=== PATIENT | male | born 1970 | race Caucasian/White ===

== ENCOUNTER 2021-06-01 10:29 | Outpatient (REF) | payer MEDICAID, SELFPAY ==
--- NOTE | ~2021-06-01 | XR_ITS ---
EXAMINATION: XR KNEES, STANDING AP XR KNEE, RIGHT CLINICAL INFORMATION: Knee pain COMPARISON: None TECHNIQUE: Standing AP view of both knees is performed. Lateral and axial patella views of the right knee are also included. FINDINGS: Right: There is borderline narrowing medial knee joint compartment. No erosive change or chondrocalcinosis. There is marginal osteophytes from the medial femoral condyle. Moderate suprapatellar effusion is present. There is corticated ossicle at the proximal anterior tibial tuberosity measuring approximately 1.1 cm and thickness by 2.1 cm in length. The deep infrapatellar recess is preserved. There is no fracture or dislocation or destructive process. Axial view patella shows no significant joint narrowing and no lateralization patella. The may be a mild lateral patellar tilt. Left: There is borderline narrowing medial knee joint compartment without erosive change or chondrocalcinosis. No fracture or dislocation. No destructive process. XR/XR knee RT 2V IMPRESSION: Right: -Mild narrowing medial compartment. -Moderate suprapatellar effusion. -Corticated ossicle proximal anterior tibial tuberosity. Left: -Mild narrowing medial compartment.
--- NOTE | ~2021-06-01 | XR_ITS ---
EXAMINATION: XR KNEES, STANDING AP XR KNEE, RIGHT CLINICAL INFORMATION: Knee pain COMPARISON: None TECHNIQUE: Standing AP view of both knees is performed. Lateral and axial patella views of the right knee are also included. FINDINGS: Right: There is borderline narrowing medial knee joint compartment. No erosive change or chondrocalcinosis. There is marginal osteophytes from the medial femoral condyle. Moderate suprapatellar effusion is present. There is corticated ossicle at the proximal anterior tibial tuberosity measuring approximately 1.1 cm and thickness by 2.1 cm in length. The deep infrapatellar recess is preserved. There is no fracture or dislocation or destructive process. Axial view patella shows no significant joint narrowing and no lateralization patella. The may be a mild lateral patellar tilt. Left: There is borderline narrowing medial knee joint compartment without erosive change or chondrocalcinosis. No fracture or dislocation. No destructive process. XR/XR knee standing BI IMPRESSION: Right: -Mild narrowing medial compartment. -Moderate suprapatellar effusion. -Corticated ossicle proximal anterior tibial tuberosity. Left: -Mild narrowing medial compartment.
== END 2021-06-01 10:30 | disposition home or self-care (01) ==
LOC: HO.HOSX 10:29
PROVIDERS: Visit Provider Physician Assistant
DX: M25.561 Pain in right knee (principal); M25.461 Effusion, right knee; Z87.39 Personal history of other diseases of the musculoskeletal system and connective tissue
CPT/HCPCS: 20610; 73560; 73565; 87071; 87073; 87205; 89060; 99212; J1040

== ENCOUNTER 2022-03-21 09:29 | Outpatient (REF) | payer OTHER, SELFPAY ==
[2022-03-21 10:01] LABS: MANUAL DIFF FLAG NO
[2022-03-21 10:18] LABS: Basophils Percent Auto 0.1 % (0-2); Hematocrit 46.1 % (42.0-52.0); Hemoglobin 15.5 g/dl (14.0-18.0); Imm Gran Abs Auto 0.04 X10*3/uL (0.00-0.03); Imm Gran Pct Auto 0.5 % (0.0-0.4); Lymphocytes Percent Auto 22.9 % (20-40); Mean Corpuscular HGB Conc 33.6 g/dl (31.0-36.0); Mean Corpuscular Hemoglobin 29.5 pg (27.0-33.0); Mean Corpuscular Volume 87.6 fL (80.0-98.0); Mean Platelet Volume 9.9 fL (9.4-12.4); Monocytes Absolute Auto 0.6 X10*3/uL (0.1-1.2); Monocytes Percent Auto 7.4 % (2-11); Neutrophils Absolute Auto 5.9 x10*3/uL (2.0-8.3); Neutrophils Percent Auto 69.1 % (45-73); Platelet Count 241 X10*3/uL (160-400); Red Blood Count 5.26 X10*6/uL (4.60-5.80); White Blood Count 8.5 X10*3/uL (4.8-10.8)
[2022-03-21 10:37] LABS: Estimated Average Glucose 126 mg/dL
[2022-03-21 11:04] LABS: Erythrocyte Sedimentation Rate 6 MM/HR (0-15)
[2022-03-21 11:05] LABS: Alanine Aminotransferase 14 U/L (0-40); Albumin Level 4.3 g/dL (3.5-5.0); Alkaline Phosphatase 63 U/L (39-117); Anion Gap 19 (12-20); Aspartate Amino Transferase 13 U/L (5-37); Bilirubin Total 0.6 mg/dL (0.0-1.0); Blood Urea Nitrogen 14 mg/dL (9-16); C Reactive Protein 1.02 mg/dL (< or = 0.50); Calcium 9.3 mg/dL (8.4-10.2); Carbon Dioxide 23 mmol/L (22-29); Chloride 105 mmol/L (96-108); Cholesterol 214 mg/dL; Estimated Glomerular Filt Rate > 60; Glucose Random 194 mg/dL (60-115); HDL Cholesterol 43 mg/dL; LDL Cholesterol Calculated 139 mg/dl; Potassium 4.7 mmol/L (3.3-5.1); Sodium 142 mmol/L (135-145); Total Protein 6.9 g/dL (6.5-8.0); Triglycerides 163 mg/dL; Uric Acid 7.5 mg/dL (3.4-7.0)
== END 2022-03-21 09:30 | disposition home or self-care (01) ==
LOC: HO.LAB 09:29
PROVIDERS: Visit Provider Student in an Organized Health Care Education/Training Program
DX: M10.9 Gout, unspecified (principal)
CPT/HCPCS: 36415; 80053; 80061; 83036; 84550; 85025; 85652; 86140

== ENCOUNTER 2022-05-03 09:55 | Day surgery (SDC) | payer OTHER, SELFPAY ==
[2022-05-03 10:12] VITALS: BMI 32.5
[2022-05-03 10:39] VITALS: BP 148/94; PULSE 71; RESP 18; TEMP 36.7; O2SAT 97
--- NOTE | 2022-05-03 11:47 | MHC.SHP ---
Pre-Procedural Eval Section A Date of Service: 05/03/22 The patient is an INPATIENT: No Changes since office visit: No Cold of Flu in the past 2 weeks, No New Medical Problems, No Changes in Medication and No Patient answered all questions The History & Physical has been completed within 30 days and I have reviewed it.: Yes Section B Chief Complaint: Trigger finger, left middle finger Allergies: Allergies Allergy/AdvReac Type Severity Reaction Status Date / Time No Known Allergies Allergy Verified 05/03/22 10:44 Plan I have reviewed the history and physical and performed a pertinent physical examination on my patient. No changes have occurred unless specified.
--- NOTE | 2022-05-03 11:48 | P.OP_ITS ---
Operative Note Operative Note Date of Service: 05/03/22 Narrative: Operative Note Preop diagnosis: 1. Left middle finger Trigger finger Postop diagnosis: 1. Left middle finger Trigger finger Procedure: 1. Left middle finger A1 becki release Surgeon: Berta Leonardo MD Anesthesia: local block using 1% lidocaine with epinephrine Findings: No locking or catching after A1 becki release EBL: Less than 5 mL Tourniquet time: None Specimens: None Complications: None Disposition: Brought to recovery room in stable condition Plan: Follow-up for 10-14 days for wound check and suture removal Indications: The patient is 52 years old, with a left middle finger trigger finger that has been unresponsive to nonoperative management. The risks and benefits of operative treatment including but not limited to risk of damage to blood vessels, nerves, tendons, infection, persistent pain, persistent symptoms, recurrence or possible need for additional surgery were discussed with the patient and the patient wishes to proceed with surgery. Procedure: Once consent was obtained a local block was performed in the preop area using a combination of 1% lidocaine with epinephrine. The patient was then brought back to the operating suite and placed on the operative table in supine position. A tourniquet was applied to the proximal aspect of the left upper extremity and the limb was prepped and draped in a standard surgical fashion. Once assured that we had a good block, a 1.5 cm oblique incision was made centered over the A1 becki of the left middle finger . The incision was made through the skin to the subcutaneous tissues using a #15 blade. Careful dissection was made down to the level of the A1 becki using tenotomy scissors, with care being taken to protect the nearby neurovascular structures. A longitudinal incision was made in the A1 becki 1st using a #15 blade, then using tenotomy scissors under direct visualization. The A1 becki was noted to be thickened. Following our A1 becki release, we no longer saw any locking or catching of the digit with flexion and extension. Once satisfied with our A1 becki release the wound was copiously irrigated with normal saline and hemostasis was obtained with a brief period of local pressure. The skin edges were reapproximated with some 5.0 nylon suture material and a sterile dressing was applied. The patient appears to have tolerated the procedure well and with no compli cations. All digits were well vascularized at the conclusion of the case.
[2022-05-03 12:17] VITALS: BP 134/79; PULSE 63; RESP 17; TEMP 36.5; O2SAT 97
== END 2022-05-03 12:21 | disposition home or self-care (01) ==
PROVIDERS: Visit Provider Orthopaedic Surgery
PROC: (CPT 26055; principal; 2022-05-03 11:40)
DX: M65.332 Trigger finger, left middle finger (principal); E78.5 Hyperlipidemia, unspecified; Z79.899 Other long term (current) drug therapy
CPT/HCPCS: 26055; J0171

== ENCOUNTER 2022-06-01 07:14 | Outpatient (REF) | payer OTHER, SELFPAY ==
[2022-06-01 07:21] LABS: MANUAL DIFF FLAG NO
[2022-06-01 08:03] LABS: Basophils Percent Auto 0.8 % (0-2); Eosinophils Percent Auto 3.4 % (0-4); Hemoglobin 15.5 g/dl (14.0-18.0); Imm Gran Abs Auto 0.02 X10*3/uL (0.00-0.03); Imm Gran Pct Auto 0.3 % (0.0-0.4); Lymphocytes Absolute Auto 2.1 X10*3/uL (1.2-4.9); Lymphocytes Percent Auto 34.1 % (20-40); Mean Corpuscular HGB Conc 34.4 g/dl (31.0-36.0); Mean Corpuscular Hemoglobin 30.4 pg (27.0-33.0); Mean Corpuscular Volume 88.2 fL (80.0-98.0); Mean Platelet Volume 11.1 fL (9.4-12.4); Monocytes Absolute Auto 0.5 X10*3/uL (0.1-1.2); Monocytes Percent Auto 8.5 % (2-11); Neutrophils Absolute Auto 3.3 x10*3/uL (2.0-8.3); Neutrophils Percent Auto 52.9 % (45-73); Platelet Count 180 X10*3/uL (160-400); Red Cell Distribution Width 12.4 % (11.0-16.0); White Blood Count 6.2 X10*3/uL (4.8-10.8)
[2022-06-01 08:04] LABS: Basophils Absolute Auto 0.1 X10*3/uL (0.0-0.2); Eosinophils Absolute Auto 0.2 X10*3/uL (0.0-0.4)
[2022-06-01 08:30] LABS: Alanine Aminotransferase 14 U/L (0-40); Albumin Level 4.4 g/dL (3.5-5.0); Alkaline Phosphatase 56 U/L (39-117); Anion Gap 12 (12-20); Aspartate Amino Transferase 16 U/L (5-37); Bilirubin Total 0.6 mg/dL (0.0-1.0); Blood Urea Nitrogen 15 mg/dL (9-16); C Reactive Protein 0.28 mg/dL (< or = 0.50); Calcium 9.4 mg/dL (8.4-10.2); Carbon Dioxide 24 mmol/L (22-29); Chloride 107 mmol/L (96-108); Cholesterol 203 mg/dL; Estimated Glomerular Filt Rate > 60; Glucose Random 107 mg/dL (60-115); HDL Cholesterol 38 mg/dL; LDL Cholesterol Calculated 147 mg/dl; Potassium 4.3 mmol/L (3.3-5.1); Sodium 139 mmol/L (135-145); Total Protein 6.8 g/dL (6.5-8.0); Triglycerides 92 mg/dL; Uric Acid 6.3 mg/dL (3.4-7.0)
[2022-06-01 08:47] LABS: Erythrocyte Sedimentation Rate 3 MM/HR (0-15)
[2022-06-01 08:49] LABS: Estimated Average Glucose 123 mg/dL; Hemoglobin A1c % 5.9 %
== END 2022-06-01 07:15 | disposition home or self-care (01) ==
LOC: HO.LAB 07:14
PROVIDERS: PCP Family Medicine; Visit Provider Student in an Organized Health Care Education/Training Program
DX: M10.9 Gout, unspecified (principal)
CPT/HCPCS: 36415; 80053; 80061; 83036; 84550; 85025; 85652; 86140

== ENCOUNTER 2022-07-04 10:41 | Outpatient (REF) | payer OTHER, SELFPAY ==
--- NOTE | ~2022-07-04 | XR_ITS ---
EXAMINATION: XR WRIST, LEFT XR HAND, LEFT CLINICAL INFORMATION: Left wrist and hand pain. COMPARISON: None. TECHNIQUE: PA, lateral, oblique, and scaphoid views of the left wrist and PA, lateral, and oblique views of the left hand FINDINGS: LEFT WRIST: There is abnormal alignment of the proximal carpal row with anterior tilt of the lunate, a capitolunate angle of 50 degrees, and a scapholunate angle of 35 degrees. Subtle offset is evident at the lunotriquetral joint. Although not diagnostic, these findings raise suspicion for a volar intercalated segment instability deformity (VISI). There is narrowing of the hamatolunate impingement articulation with cortical irregularity at the articulation, likely degenerative. Mild radiocarpal osteoarthritis with nonuniform joint space narrowing and small marginal osteophytes. CMC and radiocarpal joints are otherwise normal. Mild soft tissue swelling at the wrist. No fractures. LEFT HAND: Tiny marginal osteophytes are evident within multiple MCP and DIP joints. No fracture or malalignment. Bone mineralization is normal. No erosions. Soft tissues are unremarkable. XR/XR hand LT min 3V IMPRESSION: 1. 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 Consider correlation with MRI of the wrist for further assessment of the lunotriquetral ligament if the patient's findings correlate with possible carpal instability. 2. 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 No acute osseous findings. No evidence of an inflammatory arthropathy. No erosions.
--- NOTE | ~2022-07-04 | XR_ITS ---
EXAMINATION: XR WRIST, LEFT XR HAND, LEFT CLINICAL INFORMATION: Left wrist and hand pain. COMPARISON: None. TECHNIQUE: PA, lateral, oblique, and scaphoid views of the left wrist and PA, lateral, and oblique views of the left hand FINDINGS: LEFT WRIST: There is abnormal alignment of the proximal carpal row with anterior tilt of the lunate, a capitolunate angle of 50 degrees, and a scapholunate angle of 35 degrees. Subtle offset is evident at the lunotriquetral joint. Although not diagnostic, these findings raise suspicion for a volar intercalated segment instability deformity (VISI). There is narrowing of the hamatolunate impingement articulation with cortical irregularity at the articulation, likely degenerative. Mild radiocarpal osteoarthritis with nonuniform joint space narrowing and small marginal osteophytes. CMC and radiocarpal joints are otherwise normal. Mild soft tissue swelling at the wrist. No fractures. LEFT HAND: Tiny marginal osteophytes are evident within multiple MCP and DIP joints. No fracture or malalignment. Bone mineralization is normal. No erosions. Soft tissues are unremarkable. XR/XR wrist LT w scaphoid IMPRESSION: 1. 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 Consider correlation with MRI of the wrist for further assessment of the lunotriquetral ligament if the patient's findings correlate with possible carpal instability. 2. 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 No acute osseous findings. No evidence of an inflammatory arthropathy. No erosions.
== END 2022-07-04 10:42 | disposition home or self-care (01) ==
LOC: HO.HOSX 10:41
PROVIDERS: PCP Internal Medicine Gastroenterology; Visit Provider Orthopaedic Surgery
DX: M25.532 Pain in left wrist (principal); M65.332 Trigger finger, left middle finger; M79.642 Pain in left hand
CPT/HCPCS: 20550; 73110; 73130; J1100

== ENCOUNTER → 2024-03-27 09:14 | Outpatient (BNVA) | payer OTHER, SELFPAY | PROVIDERS: PCP Internal Medicine Gastroenterology; Visit Provider Internal Medicine | DX: Z13.89 Encounter for screening for other disorder (principal) | CPT/HCPCS: 99202 ==

== ENCOUNTER 2024-08-19 13:57 | Outpatient (AMB) | payer OTHER, SELFPAY ==
[2024-08-19 13:59] VITALS: BP 132/88; PULSE 83; O2SAT 95; BMI 34.6
--- NOTE | 2024-08-19 13:59 | A.OFFPC_ITS ---
Vital Signs 08/19/24 13:59 Height 6 ft Weight 255 lb BMI 34.6 BP 132/88 Blood Pressure Location Lt brachial Position Sitting Pulse 83 Pulse Source Pulse Oximeter Pulse Oximetry (%) 95 Oxygen Delivery Method Room Air Intake Visit Reasons: NEW PATIENT Allergies No Known Allergies Allergy (Verified 08/19/24 14:00) Medication List - Last Reconciled 08/19/24 by Radames Tyler MD Tobacco use date assessed: 08/19/24 Dental Screening Dental Screen Date: 08/19/24 Did you have a dental visit in the last 12 months?: Yes Did you have a dental problem in the last 6 months where you did not have access to dental care?: No Was dental information given to patient?: Patient has dentist [facility] Medical History (Updated 08/19/24 @ 14:45 by Radames Tyler MD) Left wrist pain Left hand pain NSAID long-term use Hypertension Prediabetes Dyslipidemia Surgical History (Updated 08/19/24 @ 14:24 by Radames Tyler MD) S/P left knee surgery Left wrist injury Family History (Updated 08/19/24 @ 14:29 by Radames Tyler MD) Mother No problems noted. Father Myocardial infarct Lung cancer Brother No problems noted. Sister No problems noted. Sister No problems noted. Sister No problems noted. Daughter No problems noted. Daughter No problems noted. Daughter No problems noted. Social History (Updated 08/19/24 @ 14:31 by Radames Tyler MD) Household Members: Spouse and Family Housing: House Alcohol intake: current Comment: once drink Q 3 months Patient Tobacco Use Status: Never used Tobacco Tobacco use type: Cigarette Years Smoked: cigar once ayear, e-Cigarette/Vaping Use: Never Used Second Hand Smoke Exposure: No service: No Current occupational status: employed Current occupation: [employer] Cognitive needs: No Hearing needs: No Vision needs: No Questionnaire PHQ-9 Over the last 2 weeks, how often have you been bothered by any of the following problems? 1. Little interest or pleasure in doing things: not at all 2. Feeling down, depressed, or hopeless: not at all 3. Trouble falling or staying asleep, or sleeping too much: several days 4. Feeling tired or having little energy: not at all 5. Poor appetite or overeating: not at all 6. Feeling bad about yourself - or that you are a failure or have let yourself or your family down: not at all 7. Trouble concentrating on things, such as reading the newspaper or watching television: not at all 8. Moving or speaking so slowly that other people could have noticed. Or the opposite - being so fidgety or restless that you have been moving around a lot more than usual: not at all 9. Thoughts that you would be better off or of hurting yourself in some way: not at all Total score: 1 Depression Screening Interpretation: Positive Depression Screening Done: Yes 89867 - PHQ-9 Billing: Yes Source: Developed by Drs. Shawn Mason, Jo Pierre, Cj Walker and colleagues, with an educational amparo from [employer]. Thrive Questionnaire Date Thrive assessed: 08/19/24 I am a: Patient What is your living situation today?: I have a steady place to live Within the past 12 months, did the food you bought not last and you didn't have the money to get more?: Never true Within the past 12 months, did you worry whether your food would run out before you got money to buy more?: Never true Do you have trouble paying for medicines?: No Do you have trouble getting transportation to medical appointments?: No Do you have trouble paying your heating and electricity bill?: No Do you have trouble taking care of your child, family member or friend?: No Do you have trouble with day-to-day activities such as bathing, preparing meals, shopping, managing finances, etc.?: No Are you currently unemployed and looking for a job?: No Are you interested in more education?: No Please select the resources that you would like help with: None Currently or been in a relationship where the following occur: No concerns reported THRIVE Score: 0 AUDIT C Alcohol Use Questionnaire (AUDIT-C) 1. How often do you have a drink containing alcohol?: Monthly or less 2. How many drinks containing alcohol do you have on a typical day when you are drinking?: 1 or 2 3. How often do you have six or more drinks on one occasion?: Never Total Score: 1 LORETTA-7 AMB Questionnaire LORETTA-7 Date LORETTA - 7 assessed: 02/26/25 Feeling nervous, anxious, or on edge: 0 = Not at all Not being able to stop or control worryin = Not at all Worrying too much about different things: 0 = Not at all Trouble relaxin = Not at all Being so restless that it is hard to sit still: 0 = Not at all Becoming easily annoyed or irritable: 1 = Several days Feeling afraid as if something awful might happen: 0 = Not at all Total LORETTA-7 score (0-4 normal; 5-9 mild; 10-14 moderate; 15-21 severe): 1 Source: Developed by Drs. Shawn Mason, Jo Pierre, Cj Walker and colleagues, with an educational amparo from [employer]. Physical exam (Primary Care) Vital Signs: Last Vital Signs Pulse 83 08/19/24 13:59 BP 132/88 08/19/24 13:59 Pulse Ox 95 08/19/24 13:59 Oxygen Delivery Method Room Air 08/19/24 13:59 BMI result Body Mass Index 34.6 Tobacco/Smoking Status: Tobacco use Status Tobacco use date assessed 08/19/24 08/19/24 14:06 Patient Tobacco Use Status Never used Tobacco 08/19/24 14:31 Tobacco use type Cigarette 08/19/24 14:31 e-Cigarette/Vaping Use Never Used 08/19/24 14:31 PHQ-9: PHQ-9 Score PHQ-9: Total score 1 08/19/24 14:11 Depression Screening Interpretation: Positive Thrive Assessment: Date of Thrive Assessment Date Thrive assessed 08/19/24 08/19/24 14:06 Currently or been in a relationship where the following occur: No concerns reported Const General: alert; No acute distress Eyes Conjunctivae: conjunctivae normal Resp Auscultation: clear to auscultation bilaterally Cardio Rate: regular rate Rhythm: regular rhythm GI Inspection: Yes normal to inspection Extrem General: Yes normal to inspection and No edema Coding Level of Care Code New Pt Level 4 (51127) Diagnoses Glucose intolerance (impaired glucose tolerance) R73.02 Acute idiopathic gout of right foot M10.071 Chronicity: acute Gout etiology: idiopathic Gout site: foot Laterality: right Dyslipidemia E78.5 Obesity (BMI 30-39.9) E66.9 Colon cancer screening Z12.11 Colonoscopy refused Z53.20 Hypersomnia G47.10 Insomnia G47.00 Generalized anxiety disorder F41.1 Blood pressure elevated without history of HTN R03.0 Additional Codes PHQ-9 - 15873 - PHQ-9 Billing: Yes ([id number]) Assessment & Plan Assessment & Plan (1) Glucose intolerance (impaired glucose tolerance): Code(s): R73.02 - Impaired glucose tolerance (oral) Category: Medical Plan: Decrease the amount of carbohydrate intake, pasta, bread, rice and potatoes are all sugar and that is aside from all the sweet stuff, remember that fruits are good but they are Sweet also. (2) Gout: Code(s): M10.9 - Gout, unspecified Category: Medical Qualifiers: Chronicity: acute Gout etiology: idiopathic Gout site: foot Laterality: right Qualified Code(s): M10.071 - Idiopathic gout, right ankle and foot Plan: Low purine diet and keep well hydrated (3) Dyslipidemia: Code(s): E78.5 - Hyperlipidemia, unspecified Category: Medical Plan: Avoid fried foods, chicken skin, eggs, butter margarine, pastries and meat. Be it pork or beef they have a lot of cholesterol LDL goal of less than 130 and triglyceride of less than 150 (4) Obesity (BMI 30-39.9): Code(s): E66.9 - Obesity, unspecified Category: Medical Plan: Diet and exercise (5) Colon cancer screening: Code(s): Z12.11 - Encounter for screening for malignant neoplasm of colon Category: Medical (6) Colonoscopy refused: Code(s): Z53.20 - Procedure and treatment not carried out because of patient's decision for unspecified reasons Category: Medical (7) Hypersomnia: Code(s): G47.10 - Hypersomnia, unspecified Category: Medical (8) Insomnia: Code(s): G47.00 - Insomnia, unspecified Category: Medical (9) Generalized anxiety disorder: Code(s): F41.1 - Generalized anxiety disorder Category: Medical (10) Blood pressure elevated without history of HTN: Code(s): R03.0 - Elevated blood-pressure reading, without diagnosis of hypertension Category: Medical Plan History of Present Illness The patient is a 54-year-old male presenting with anxiety, sleep disturbance, and management of chronic medical conditions. His anxiety, persistent and affecting quality of life, contributes to significant difficulty in maintaining restful sleep. He regularly experiences disrupted sleep patterns, on average waking at approximately 2:00 AM. While previously reluctant to use medications, he is now more open to trying pharmacological interventions to manage these symptoms. In terms of chronic conditions, the patient has a history of hypertension, typically fluctuating, likely compounded by high-stress living conditions. He has been managing his hypercholesterolemia and gout without regular use of recommended medications such as allopurinol. His impaired glucose tolerance, as demonstrated by previous test results showing a fasting blood sugar of 107 mg/dL and an HbA1c of 5.9, indicates the need for ongoing monitoring and management of dyslipidemia, with previous LDL cholesterol levels recorded at 147 mg/dL. The patient has a significant surgical history, having undergone meniscus repair and wrist fracture intervention. 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 Colon cancer screening has not been performed, with patient preference for stool testing over endoscopic examination. Health Maintenance - Lifestyle intervention: Emphasized importance of diet and exercise for weight management and to address dyslipidemia, hypertension, and impaired glucose tolerance. - Discussed colon cancer screening options; agreed upon Cologuard test. - Advised increased hydration, particularly with consideration to his gout history. - Discussed importance of blood pressure monitoring at home. - Highlighted need for routine health maintenance, including regular sleep hygiene practices for anxiety and sleep disturbance management. - Recommended cautious approach to medication, considering past reluctance to pharmacotherapy. Social History - Career: Former business emergency telecommunications dispatcher, reports ongoing high stress levels impacting health. - Alcohol use: Rarely consumes alcohol; substantially reduced intake in last year. - Tobacco use: Denies smoking currently. - Sleep: Notable disturbances; longstanding difficulty achieving restful sleep, often awakens at night. - Exercise: Not explicitly stated; implied active work schedule. - Diet: Detailed focus on hydration; noted to drink substantial quantity of water. Review of Systems - Respiratory: Denies lung problems. - Gastrointestinal: Denies ulcers or recent gallbladder issues; reports difficulty with colonoscopy compliance. 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 - Psychological: Reports high anxiety levels affecting relaxation and sleep. Physical Exam General: Cooperative, healthy appearing, comfortable, no acute distress and well developed Orientation: Patient oriented x3 Limitations: No limitations Head: Normal to inspection Ears: Hearing grossly normal bilaterally Nose: Normal external nose present Face and sinus: Normal facial exam Eyes: Appearance normal, both eyes and all related structures Neck: Normal visual inspection and Yes full ROM Respiratory: Normal respiratory effort and able to speak in complete sentences. Clear to auscultation bilaterally Cardiovascular: Regular rate and rhythm. Normal S1 and S2 GI: Normal to inspection. Soft to palpation and nontender Skin: No rashes or lesions noted Neuro: Patient oriented x3 Extremities: Normal to inspection Results - Labs: Previous HbA1c at 5.9, fasting blood sugar 107 mg/dL, LDL cholesterol at 147 mg/dL as per 2021 records. - Tests: History of knee arthroscopy for meniscus repair, wrist fracture prabhakar gical intervention and past gallbladder episodes. Plan I propose addressing the patient's anxiety with Wellbutrin for daily management, supplemented by Ativan as needed for acute episodes, emphasizing careful supervision to mitigate dependence risks. For hypertension and hypercholesterolemia, I stressed the importance of lifestyle changes including diet and exercise, supported by patient-led home blood pressure monitoring. We discussed the role of hydration management for gout prevention. Colon cancer screening will proceed with Cologuard due to patient preference against colonoscopy. 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 Follow-up will include evaluation of medication efficacy and lifestyle interventions. Patient was informed and verbally consented to the use of an ambient scribe for clinic note documentation during this visit. Discussion Notes I discussed the implications of anxiety on sleep and overall health, presenting options such as Wellbutrin, paired with Ativan for acute anxiety, clarifying the importance of monitoring and avoiding benzodiazepine dependency. In discussions regarding chronic conditions, I emphasized lifestyle changes addressing diet and exercise, and periodic blood pressure monitoring to manage hypertension and dyslipidemia. I underscored the need for preventive screenings, discussing a non-invasive colon cancer screening alternative via Cologuard, which the patient preferred over colonoscopy. Guidance on hydration was reiterated due to gout history. We considered a home sleep study for potential obstructive sleep apnea related to historic Guillain-Pastor? syndrome. A follow-up was planned to assess treatment efficacy and necessary adjustments. Patient Instructions - Continue daily lifestyle modifications: focus on diet and exercise. - Monitor blood pressure daily and record readings. - Increase hydration to assist with gout management. - Undergo Cologuard screening for colon cancer as soon as the kit arrives. - Take prescribed medications as directed: Wellbutrin daily, Ativan as needed only. - Await contact for scheduling a home sleep study. - Follow up as planned to adjust treatment plan based on response. - Seek immediate care if experiencing significant increases in blood pressure, unresolved anxiety, or other concerning symptoms. Orders: Orders Comprehensive Met. Panel Today R73.02 - Impaired glucose tolerance (oral) Lipid Panel Today E78.00 - Pure hypercholesterolemia, unspecified, R73.02 - Impaired glucose tolerance (oral) Free T4 (Free Thyroxine) Today R73.02 - Impaired glucose tolerance (oral) Testosterone, Total Today F41.1 - Generalized anxiety disorder Complete Blood Count Auto Diff Today R73.02 - Impaired glucose tolerance (oral) Hemoglobin A1c Today R73.02 - Impaired glucose tolerance (oral) Uric Acid Today R73.02 - Impaired glucose tolerance (oral) Thyroid Stimulating Hormone Today R73.02 - Impaired glucose tolerance (oral) Vitamin B12 and Folate Today R73.02 - Impaired glucose tolerance (oral) Prostate Specific Antigen Scr Today R73.02 - Impaired glucose tolerance (oral) RT home sleep study Today G47.10 - Hypersomnia, unspecified Referrals Cologuard Test Z12.11 - Encounter for screening for malignant neoplasm of colon, Z12.12 - Encounter for screening for malignant neoplasm of rectum Medications: New bupropion HCl XL (Wellbutrin XL) 150 mg PO QAM 30 tabs 1RF F41.1 - Generalized anxiety disorder lorazepam 0.5 mg PO DAILY PRN 10 tabs 0RF anxiety F41.1 - Generalized anxiety disorder
--- OUTSIDE RECORDS SUMMARY | 2024-08-19 17:12 | XMS_ITS | Data Portability ---
Author Organization [facility], [address] Address [address] [place] [address] Assessment No assessment recorded. Plan of Treatment Reminders Order Date Submit Date Provider Last Modified By Organization Details Last Modified Time Details Appointments None recorded. Lab None recorded. Referral None recorded. Procedures None recorded. Surgeries None recorded. Imaging None recorded. Medication Orders colchicine 0.6 mg tablet 2023 [facility]/Pharmacy #2024, [address] [place] [address], [address], 4 08:23:21 indomethaci n 50 mg capsule 2023 [facility]/Pharmacy #2024, [address] [place], [address], 4 08:23:21 prednisone 10 mg tablet 2023 [facility]/Pharmacy #2024, [address] [place] [address], [address], 4 08:23:20 indomethaci n 50 mg capsule 2023 024 [facility]/Pharmacy #2024, [address] [place], [address], 4 14:14:41 prednisone 20 mg tablet 2023 [facility]/Pharmacy #2024, [address] [place], [address], 4 14:14:41 Patient TargetsNo targets recorded. Patient Instructions Encounter Date Encounter Id Patient Instructions Last Modified By Organization Details Last Modified Time 06/05/2024 [id number] gout: care instructions [email or web address] Not available 06/05/2024 08:23:17 Reason for Referral None Reported. Problems Name Problem SNOMED Code Status Onset Date Resolution Date Notes Provider Name and Address Organization Details Recorded Time Pain in right foot 622267831544774 Active 2023 MANDA DURANT NP [address] [place] , [place], [address], [place] - [facility] 14:12:55 Acute gout 032120774 Active 2023 MANDA DURANT NP [address] [place] , [place], [address], [place] - [facility] 14:13:33 Notes:gout flair up in past - at age of 28 Problem Notes None recorded. Medical Equipment None Reported. Allergies No known drug allergies Medications Name Sig Start Date Stop Date Status Note LastModified by Organization Details LastModified Time prednisone 10 mg tablet 5 pills po daily x 2 d then 4 pills po daily x 2 d then 3 pills po daily x 2 d then 2 pills po daily x 2 d then 1 pill daily until complete 2023 active Not Available Not Available Not Avai lable prednisone 20 mg tablet Take 2 tablets every day by oral route for 5 days. 2023 active Not Available Not Available Not Avai lable indomethacin 50 mg capsule Take 1 capsule 3 times a day by oral route with meal(s), for gout. 2023 active Not Available Not Available Not Avai lable colchicine 0.6 mg tablet take 2 pills together po x 1 now then take 1 additional pill in 1 h 2023 active Not Available Not Available Not Avai lable Vitals Date Recorded Body height Body mass index (BMI) Body weight Oxygen saturation Oxygen saturation in Arterial blood by Pulse oximetry Pain severity - 0-10 verbal numeric rating [Score] - Reported Heart rate Respiratory rate Body temperature Systolic blood pressure Diastolic blood pressure Provider Name and Address Organization Details Last Updated DateTime 182.88 cm 33.2 kg/m2 290402. 13 g 99 % 99 % 0 86 /min 18 /min 97.6 [degF] 164 mm[Hg] 112 mm[Hg] Shanika Jac PA - [facility] 4 13:19:17 Date Recorded Body height Body temperature Respiratory rate Heart rate Oxygen saturation Oxygen saturation in Arterial blood by Pulse oximetry Systolic blood pressure Diastolic blood pressure Provider Name and Address Organization Details Last Updated DateTime 4 182.88 cm 99.1 [degF] 18 /min 107 /min 97 % 97 % 158 mm[Hg] 91 mm[Hg] Delia Ocasioers PA - [facility] 4 08:10:28 Social History Question Answer Notes LastModified by Organizat ion Details LastModified Time Tobacco Smoking Status Never Smoker Shanika Nathan harriett [place] - [facility] 04/27/2024 13:20:10 What Is Your Level Of Alcohol Consumption? None Information not available 04/27/2024 Are You Currently Employed? Yes Information not available 04/27/2024 Have You Had A Flu Shot This Season? N/A Information not available 04/27/2024 What Is Your Relationship Status? Information not available 04/27/2024 Do You Use Any Illicit Or Recreational Drugs? No Information not available 04/27/2024 Have You Recently Traveled Abroad? No Information not available 04/27/2024 Do You Or Have You Ever Used Any Other Forms Of Tobacco Or Nicotine? No Information not available 04/27/2024 Sex: Unknown Functional Status None recorded. Mental Status None recorded. Family History Relationship Description Onset Age of this Age Resolved Age Notes LastModified by Organization Details LastModified Time Father No current problems or disability Not available 04/27 13:20:03 Mother No current problems or disability Not available 04/27 13:20:03 Medical History No medical history recorded. Past Encounters Encounter ID Performer Location Encounter Start Date Encounter Closed Date Diagnosis/Indication Diagnosis SNOMED-CT Code Diagnosis ICD10 Code Diagnosis [place] [id number] [place] [address] [place] [address] 04/27/2024 12:13:33 04/27/2024 13:20:50 Pain in right foot 7189325268 17573 M79.671 Acute gout 397873829 M10 .471 [id number] [place] [address] [place] [address] 06/05/2024 07:57:09 06/05/2024 08:23:51 Acute gout 412325881 M10.9 Hx and PE c/w goutwill treat with prednisone and colchicine indomethac in prnReviewe d with patient potential adverse side effects of the medication .increase fluidsrest /elevation diet recommenda tions reviewed He is establishi ng care with anew PCP after Jun 24will f/u with new PCP and consider restarting allopurino l Patient advised to follow up as needed for worsening symptoms or no improvemen t. Patient expressed understand ing of and agreement with the plan as outlined above. Health Concerns Section Related Observation LastModified by Organization Detai ls LastModified Time None Recorded Concern Status LastModified by Organization Details LastModified Time None Recorded Advance Directives Directive None Recorded Payers Encounter Date Sequence Insurance Name Policy Number Policy Garcia Covered Member ID Garcia Member ID Guarantor Name 04/27/2024 1 [facility] [id number] Garrett Darshan [id number] Garrett Darshan 06/05/2024 1 [facility] [id number] Garrett Darshan [id number] Garrett Darshan Notes Date Note Type Note Provider Name and Address Organization Details Recorded Time 04/27/2024 text/html Skin Redness UCReported bypatient.[facility] Quality:painful;eryth ematous;warm Severity:worsening Onset:gradual onset Symptoms:no fever; no nausea; no vomitingNotes:right foot pain right foot has pain, erythemareports history of gouthas has similar presentation beforeno trauma, no injuries MANDA DURANT NP [address] [place], [address], [place] - [facility] 04/27/2024 14:19:11 06/05/2024 text/html Foot/Ankle UCRep orted bypatient.Notes:54 yo malec/o pain in R foot X 2 d No h/o trauma+ swelling+ red+ tenderno rashno bruisingno numbnessno tinglingno weakness+ pain with ambulation no f/c/n/v Has h/o gout in the past w/ similar Sx in this foot.Reports uric acid levels in the 7-8 range in the past Was on allopurinol but Rx ran out a few months ago He has had shellfish recently Basilio Bowman, DO [address], [place], [address], [place] - [facility] 06/05/2024 08:29:34
== END 2024-08-19 14:50 | disposition home or self-care (01) ==
PROVIDERS: PCP Internal Medicine; Visit Provider Internal Medicine
DX: R73.02 Impaired glucose tolerance (oral) (principal); M10.071 Idiopathic gout, right ankle and foot; E66.9 Obesity, unspecified; Z68.34 Body mass index [BMI] 34.0-34.9, adult; E78.5 Hyperlipidemia, unspecified; Z12.11 Encounter for screening for malignant neoplasm of colon; Z53.20 Procedure and treatment not carried out because of patient's decision for unspecified reasons; G47.10 Hypersomnia, unspecified; G47.00 Insomnia, unspecified; F41.1 Generalized anxiety disorder; R03.0 Elevated blood-pressure reading, without diagnosis of hypertension

== ENCOUNTER → 2024-08-19 13:57 | Outpatient (BNVA) | payer OTHER, SELFPAY | PROVIDERS: PCP Internal Medicine Gastroenterology; Visit Provider Internal Medicine | DX: R73.02 Impaired glucose tolerance (oral) (principal); M10.071 Idiopathic gout, right ankle and foot; E78.5 Hyperlipidemia, unspecified; E66.9 Obesity, unspecified; Z68.34 Body mass index [BMI] 34.0-34.9, adult; G47.10 Hypersomnia, unspecified; G47.00 Insomnia, unspecified; F41.1 Generalized anxiety disorder; R03.0 Elevated blood-pressure reading, without diagnosis of hypertension | CPT/HCPCS: 96127 ==

== ENCOUNTER → 2024-08-27 12:54 | Outpatient (REF) | payer OTHER, SELFPAY ==
--- OUTSIDE RECORDS SUMMARY | 2024-08-27 15:35 | XMS_ITS | Data Portability ---
Author Organization [facility], [address] Address [address] [place] [address] Assessment No assessment recorded. Plan of Treatment Reminders Order Date Submit Date Provider Last Modified By Organization Details Last Modified Time Details Appointments None recorded. Lab None recorded. Referral None recorded. Procedures None recorded. Surgeries None recorded. Imaging None recorded. Medication Orders colchicine 0.6 mg tablet 2023 [facility]/Pharmacy #2024, [address] [place] [address], [id number], 4 08:23:21 indomethaci n 50 mg capsule 2023 [facility]/Pharmacy #2024, [address] [place], [address], 4 08:23:21 prednisone 10 mg tablet 2023 [facility]/Pharmacy #2024, [address] [place] [address], [id number], 4 08:23:20 indomethaci n 50 mg capsule 2023 024 [facility]/Pharmacy #2024, [address] [place], [address], 4 14:14:41 prednisone 20 mg tablet 2023 [facility]/Pharmacy #2024, [address] [place], [address], 4 14:14:41 Patient TargetsNo targets recorded. Patient Instructions Encounter Date Encounter Id Patient Instructions Last Modified By Organization Details Last Modified Time 06/05/2024 [id number] gout: care instructions [email or web address] Not available 06/05/2024 08:23:17 Reason for Referral None Reported. Problems Name Problem SNOMED Code Status Onset Date Resolution Date Notes Provider Name and Address Organization Details Recorded Time Pain in right foot 431226219596368 Active 2023 MANDA DURANT NP [address] [facility] [address] , [place], [address], [place] - [facility] 14:12:55 Acute gout 305297367 Active 2023 MANDA DURANT NP [address] , [place], [address], [place] - [facility] 14:13:33 Notes:gout [...] Last Updated DateTime 182.88 cm 33.2 kg/m2 414119. 13 g 99 % 99 % 0 [...] SNOMED-CT Code Diagnosis ICD10 Code Diagnosis [place] [id number] [place] [address] [place] [address] 04/27/2024 12:13:33 04/27/2024 13:20:50 Pain in right foot 6308752179 52560 M79.671 Acute gout 232209350 M10 .471 [id number] [place] [address] [place] [address] 06/05/2024 07:57:09 06/05/2024 08:23:51 Acute gout 863431319 M10.9 Hx and PE c/w goutwill treat [...] Garcia Member ID Guarantor Name 04/27/2024 1 [facility] [id number] Garrett Darshan [id number] 81 Garrett Darshan 06/05/2024 1 [facility] [id number] Garrett Darshan [id number] 81 Garrett Darshan Notes Date Note Type Note Provider Name and Address Organization Details Recorded Time 04/27/2024 text/html Skin Redness UCReported bypatient.[facility] Quality:painful;eryth ematous;warm Severity:worsening Onset:gradual onset Symptoms:no fever; no nausea; no vomitingNotes:right foot pain right foot has pain, erythemareports history of gouthas has similar presentation beforeno trauma, no injuries MANDA DURANT NP [address] [place], [address], [place] - [facility] 04/27/2024 14:19:11 06/05/2024 [...] Basilio Bowman, DO [address], [place], [address], [place] - [facility] 06/05/2024 08:29:34
== END ==
LOC: HO.SL 12:54
PROVIDERS: PCP Internal Medicine; Visit Provider Internal Medicine
DX: G47.10 Hypersomnia, unspecified (principal)
CPT/HCPCS: 95806

== ENCOUNTER → 2024-08-27 13:12 | Outpatient (BNV) | payer OTHER, SELFPAY | PROVIDERS: PCP Internal Medicine; Visit Provider Internal Medicine | DX: G47.33 Obstructive sleep apnea (adult) (pediatric) (principal) | CPT/HCPCS: 95806 ==